=== PATIENT | male | born 1995 | race African-American/Black ===

== ENCOUNTER 2016-11-27 20:33 | Emergency (ER) | payer SELFPAY ==
[2016-11-27 20:40] VITALS: BP 155/73; PULSE 86; TEMP 98.6
--- NOTE | 2016-11-27 21:45 | PDOC ---
History of Present Illness - General Chief Complaint: Chest Pain Stated Complaint: CHEST PAIN Time Seen by Provider: 11/27/16 21:09 - History of Present Illness Initial Comments: 11/27/16 21:45 CHIEF COMPLAINT: chest pain, sob HISTORY OF PRESENT ILLNESS: 21 yo M with hx of hypothyroidism presents to ED with midsternal chest pain x 5 days. Patient reports that the pain is "worse when I am sitting up" and that he feels the pain is worse when he breathes in. Patient denies any use of tobacco, alcohol, or marijuana but on exam patient smells heavily of marijuana. He denies any recent travel or extended sedentary periods. No recent travel or sick contacts. PAST MEDICAL HISTORY: Denies past medical history FAMILY HISTORY: Denies SOCIAL HISTORY: Denies tobacco, alcohol, illicit drug use. SURGICAL HISTORY: Denies ALLERGIES: No known drug allergies REVIEW OF SYSTEMS General/Constitutional: Denies fever or chills. Denies weakness, weight change. HEENT: Denies change in vision. Denies ear pain or discharge. Denies sore throat. Cardiovascular: Chest discomfort, SOB. Respiratory: Denies cough, wheezing, or hemoptysis. Gastrointestinal: Denies nausea, vomiting, diarrhea or constipation. Denies rectal bleeding. Genitourinary: Denies dysuria, frequency, or change in urination. Musculoskeletal: Denies joint or muscle swelling or pain. Denies neck or back pain. Skin and breasts: Denies rash or easy bruising. Neurologic: Denies headache, vertigo, loss of consciousness, or loss of sensation. PHYSICAL EXAM General Appearance: Morbidly obese, appropriately dressed. No apparent distress , texting on cell phone. HEENT: EOMI, PERRLA, normal ENT inspection, normal voice, TMs normal, pharynx normal. No conjunctival pallor. No photophobia, scleral icterus. Neck: Supple. Trachea midline. No tenderness, rigidity, carotid bruit, stridor , lymphadenopathy, or thyromegaly. Respiratory/Chest: Reproducible chest tenderness with palpation. Lungs CTAB. No shortness of breath, chest tenderness, respiratory distress, accessory muscle use. No crackles, rales, rhonchi, stridor, wheezing, dullness Cardiovascular: RRR. S1, S2. No JVD, murmur, bradycardia, tachycardia. Vascular Pulses: Dorsalis-Pedis (R): 2+, Dorsalis-Pedis (L): 2+ Gastrointestinal/Abdominal: Normal bowel sounds. Abdomen soft, non-distended. No tenderness or rebound tenderness. No organomegaly, pulsatile mass, guarding , hernia, hepatomegaly, splenomegaly. Lymphatic: No adenopathy, tenderness. Musculoskeletal/Extremities: Normal inspection. FROM of all extremities, normal capillary refill. Pelvis Stable. No CVA tenderness. No tenderness to extremities, pedal edema, swelling, erythema or deformity. Integumentary: Appropriate color, dry, warm. No cyanosis, erythema, jaundice or rash Neurologic: men's golf coach II-XII intact. Fully oriented, alert. Appropriate mood/affect. Motor strength 5/5. No appreciable EOM palsy, facial droop or sensory deficit. 11/27/16 22:01 Past History - Past Medical History Allergies/Adverse Reactions: Allergies Allergy/AdvReac Type Severity Reaction Status Date / Time No Known Allergies Allergy Verified 11/27/16 20:40 Home Medications: Ambulatory Orders Ibuprofen 800 mg PO TID #21 tablet 11/27/16 Anemia: Yes Thyroid Disease: Yes (HYPO) - Surgical History Abdominal Surgery: No - Psycho/Social/Smoking Cessation Hx Anxiety: No Suicidal Ideation: No Smoking Status: Yes (not allowed to smoke) Smoking History: Never smoked Have you smoked in the past 12 months: Yes Number of Cigarettes Smoked Daily: 2 Information on smoking cessation initiated: No Hx Alcohol Use: No Drug/Substance Use Hx: Yes Substance Use Type: Marijuana *Physical Exam - Vital Signs Last Vital Signs Temp Pulse Resp BP Pulse Ox 98.6 F 86 18 155/73 97 11/27/16 20:37 11/27/16 20:37 11/27/16 20:37 11/27/16 20:37 11/27/16 20:37 ED Treatment Course - LABORATORY CBC & Chemistry Diagram: 11/27/16 22:08 11/27/16 22:08 - ADDITIONAL ORDERS Additional order review: Laboratory Results 11/27/16 11/27/16 11/27/16 22:08 22:08 22:08 Sodium 139 Potassium 4.3 Chloride 105 Carbon Dioxide 29 Anion Gap 5 L BUN 16 D Creatinine 1.2 D Creat Clearance w eGFR > 60 Random Glucose 93 Calcium 9.0 Total Bilirubin 0.1 L D AST 28 ALT 36 D Alkaline Phosphatase 91 D Creatine Kinase 336 H Creatine Kinase Index 2.8 CK-MB (CK-2) 1.034 CK-MB (CK-2) Rel Index Cancelled Troponin I < 0.02 Total Protein 7.0 Albumin 3.2 L TSH 2.76 D 11/27/16 22:08 RBC 4.86 MCV 81.7 MCHC 32.9 RDW 15.3 MPV 9.0 Neutrophils % 65.0 Lymphocytes % 25.1 Monocytes % 7.0 Eosinophils % 1.9 Basophils % 1.0 - RADIOLOGY Radiology Studies Ordered: Category Date Time Status CHEST PA & LAT [RAD] Stat Radiology 11/27/16 21:45 Taken - Medications Given in the ED: ED Medications Discontinued Medications Generic Name Dose Route Start Last Admin Trade Name Freq PRN Reason Stop Dose Admin Ketorolac Tromethamine 60 mg 11/27/16 22:55 11/27/16 23:03 Toradol Injection - IM 11/27/16 22:56 Not Given ONCE ONE Ketorolac Tromethamine 30 mg 11/27/16 23:01 11/27/16 23:03 Toradol Injection - IVPUSH 11/27/16 23:02 30 mg ONCE ONE Administration Medical Decision Making - Medical Decision Making 11/27/16 22:01 21 yo M with hx of hypothyroidism presents to ED with midsternal chest pain x 5 days. -CBC, CMP, card profile, TSH -EKG, CXR EKG NSR. CXR negative. Labs unremarkable. Chest pain is reproducible, likely MSK in nature. -Toradol 30 mg IV 11/27/16 23:50 Patient reassessed, at this time he states the pain has resolved and he is ready to go home. Advised patient to f/u with PMD and of signs and symptoms for return to ER; patient verbalized understanding and agrees to plan. *DC/Admit/Observation/Transfer Diagnosis at time of Disposition: Costochondral chest pain - Discharge Dispostion Disposition: HOME Condition at time of disposition: Improved Admit: No - Prescriptions Prescriptions: Ibuprofen 800 mg PO TID #21 tablet - Patient Instructions Printed Discharge Instructions: DI for Costochondritis Additional Instructions: Please take medication as prescribed. Follow up with your primary care doctor by the end of the week. He may refer you to a mathematics faculty member for further evaluation. If you experience any sudden chest pain, shortness of breath, palpitations, difficulty breathing, fever, vomiting, or any new or worsening symptoms, please return to the ER.
[2016-11-27 22:16] LABS: EOSINOPHIL 1.9 % (0-4.5); MCH 26.9 pg (25.7-33.7); MCHC 32.9 g/dl (32.0-35.9); MEAN CELL VOLUME 81.7 fl (80-96); PLATELET COUNT 217 K/MM3 (134-434); RDW 15.3 % (11.9-15.9); WHITE BLOOD COUNT 13.3 K/mm3 (4.0-10.0)
[2016-11-27 22:42] LABS: ALBUMIN 3.2 g/dl (3.4-5.0); ANION GAP 5 (8-16); CO2 29 mmol/L (21-32); CREATININE 1.2 mg/dL (0.7-1.3); GLUCOSE,RANDOM 93 mg/dL (74-106); SGPT/ALT 36 U/L (12-78)
[2016-11-27 22:44] LABS: ALK PHOS 91 U/L (45-117); BILIRUBIN,TOTAL 0.1 mg/dL (0.2-1.0)
[2016-11-27 22:48] LABS: SGOT/AST 28 U/L (15-37)
[2016-11-27 22:50] LABS: THYROID STIMULATING HORMONE 2.76 uIU/ml (0.358-3.74); TROPONIN I < 0.02 ng/ml (0.00-0.05)
[2016-11-27] MEDS ORDERED: KETOROLAC TROMETHAMINE 60 MG/2 ML VIAL IM ONE (22:55)
[2016-11-27] MEDS ORDERED: KETOROLAC TROMETHAMINE 30 MG/1 ML VIAL IVPUSH ONE (23:01)
[2016-11-27] MEDS ORDERED: KETOROLAC TROMETHAMINE 30 MG/1 ML VIAL ONE (23:01)
--- NOTE | 2016-11-30 08:34 | EKG ---
Test Reason : Blood Pressure : / mmHG Vent. Rate : 087 BPM Atrial Rate : 087 BPM P-R Int : 156 ms QRS Dur : 086 ms QT Int : 352 ms P-R-T Axes : 036 019 009 degrees QTc Int : 423 ms NORMAL SINUS RHYTHM POSSIBLE LEFT ATRIAL ENLARGEMENT BORDERLINE ECG WHEN COMPARED WITH ECG OF 04-MAR-2011 10:20, PREVIOUS ECG IS PRESENT Confirmed by DONALD SAENZ, CRISTINA ([id number]) on 11/30/2016 8:33:52 AM Referred By: Confirmed By:CRISTINA BENNETT MD
== END 2016-11-27 23:52 | disposition home or self-care (01) ==
LOC: JER 20:33
PROC: 3E0333Z Introduction of Anti-inflammatory into Peripheral Vein, Percutaneous Approach (ICD-10-PCS; principal; 2016-11-27)
DX: R07.1 Chest pain on breathing (principal); E03.9 Hypothyroidism, unspecified
CPT/HCPCS: 36415; 71020-TC; 80053; 82550; 82553; 84443; 84484; 85025; 93005; 93010; 99284-25